=== PATIENT | female | born 1960 | race Caucasian/White ===

== ENCOUNTER 2024-04-19 20:07 | Emergency (ER) | payer OTHER, SELFPAY ==
[2024-04-19 20:16] VITALS: BP 124/68
[2024-04-19 20:47] LABS: % Basophils 0.5 % (0-2); % Eosinophils 0.1 % (0-6); % Immature Granulocytes 0.4 % (0-0.5); % Lymphocytes 4.1 % (20.5-51.1); % Monocytes 12.2 % (1.7-9.3); % Neutrophils 82.7 % (42.2-75.2); Absolute Lymphocytes 0.3 10^3/uL (1.2-3.4); Absolute Neutrophils 6.9 10^3/uL (1.4-6.5); Hematocrit 37.8 % (37.0-47.0); Hemoglobin 12.4 g/dL (12.0-16.0); Mean Corp Hgb Conc. 32.8 g/dL (33.0-37.0); Mean Corpuscular Hgb 27.3 pg (27.0-31.0); Mean Corpuscular Volume 83.3 fL (81.0-99.0); Mean Platelet Volume 9.4 fL (7.4-10.4); Nucleated Red Blood Cells % 0 %; Platelet Count 248 10^3/uL (130-400); Red Blood Cell Count 4.54 10^6/uL (4.20-5.40); Red Cell Dist. Width 14.7 % (11.5-14.5); White Blood Cell Count 8.4 10^3/uL (4.8-10.8)
[2024-04-19 20:55] LABS: COVID-19 Antigen Negative (Negative)
[2024-04-19 21:04] LABS: ALT (SGPT) 111 U/L (0-35); AST (SGOT) 142 U/L (14-36); Albumin 4.2 g/dl (3.5-5.0); Alkaline Phosphatase 124 U/L (38-126); Blood Urea Nitrogen 16 mg/dl (7-17); Calcium 9.1 mg/dl (8.4-10.2); Carbon Dioxide 22 mmol/L (22-30); Chloride 99 mmol/L (98-107); Glucose 122 mg/dl (70-99); Potassium 3.8 mmol/L (3.5-5.1); Sodium 133 mmol/L (135-145); Total Bilirubin 0.9 mg/dl (0.2-1.3); Total Protein 6.8 g/dl (6.3-8.2); eGFR > 60.00
[2024-04-19 21:05] LABS: Lipase 62 U/L (23-300)
--- NOTE | 2024-04-19 21:39 | EDRN ---
Patient came out of the room to state that the patient is in a lot of pain. Upon assessment patient states it's her lower back. Also states she is vomiting bile and has been vomiting for a month since starting wegovy. Ivy LINARES made aware.
[2024-04-19] MEDS: ZOFRAN 4 MG IV (22:20)
[2024-04-19] MEDS: NSS 1000 IV (22:20)
[2024-04-19] MEDS: DILAUDID 0.5 MG IV (22:20)
--- NOTE | 2024-04-19 22:50 | ED.GENMED ---
History of Present Illness
General
Chief Complaint: Cold/Flu/URI Symptoms
Source: patient
Time Seen by Provider: 04/19/24 21:27
History of Present Illness
History of Present Illness:
63-year-old female with no significant past medical history presenting to the emergency department for evaluation of generalized fatigue, malaise, nausea and vomiting, cough, sore throat and back pain starting over the last 24 hours although patient
does note that since starting Wegovy in December she has been having GI symptoms, increased the dose yesterday which led to further vomiting overnight. No known sick contacts, recent travel or recent antibiotics. Patient states that anytime she
attempted to tolerate p.o. today she would vomit. Notes that she feels dehydrated. Has not notified her primary care provider that she has been having these GI symptoms since starting the Wegovy.
Past History
Past History
ED Past Medical History: None
ED Past Surgical History: Cholecystectomy and Gynecological (Hysterectomy)
Social History
Tobacco: Non-smoker
Alcohol: Occasional
Drug: None
Personal:
Living: with family
Employment: Employed
Family History
Family History: Early CAD (Mother)
Review of Systems
Review of Systems
All Other Systems: ROS reviewed and negative except as documented in HPI and ROS
Phy Exam
Physical Exam
Physical Exam:
GENERAL: Alert , appears uncomfortable
EYE: clear conjunctiva b/l
HEAD: NCAT
ENT: o/p clr, mmm.
CARDIAC: Regular rate and rhythm .
LUNGS: Clear breath sounds bilaterally, no acute respiratory distress, no wheezes/rales/rhonchi
ABDOMEN: Soft, without focal tenderness, no r/g, no cvat
BACK: No focal tenderness, no rashes
NEUROLOGICAL: Alert and oriented
SKIN: Warm and dry, skin intact.
MUSCULOSKELETAL: No edema, well perfused.
PSYCH: Normal and appropriate interaction.
Scores
Heart Failure Risk
Heart Failure Risk Score: Not Applicable
Heart Score for Chest Pain Patients
STEMI patient?: Not applicable
Withdrawal Assessment of Alcohol
Withdrawal Assessment Completed?: Not applicable
Course
Orders/Labs/Results
Orders:
Orders
04/19/24 20:19
Electrocardiogram (*1) Urgent
Reason for Study: Chest Pain
EKG- Treatment ONCE
Chest [CR Chest - 2 Views ] Urgent
Comment:
Reason For Exam: cough
04/19/24 20:29
Complete Blood Count/With Diff Urgent
Comprehensive Metabolic Panel Urgent
Lipase Urgent
Influenza A+B Rapid Molecular Urgent
[place] Source: Nasal Swab
Specimen Description:
04/19/24 20:30
COVID-19 Antigen Urgent
Source: Nasal Swab
04/19/24 21:28
0.9% Sodium Chloride 1000 ml [Nss] 1,000 ml IV BOLUS
Ondansetron Injectable [Zofran] 4 mg IV NOW STA
04/19/24 22:08
HYDROmorphone [Dilaudid] 0.5 mg IV NOW STA
04/19/24 22:57
Ketorolac [Toradol] 30 mg IV NOW STA
Abnormal Lab Results
04/19/24
20:29
MCHC 32.8 L g/dL
(33.0-37.0)
RDW 14.7 H %
(11.5-14.5)
Absolute Neuts (auto) 6.9 H 10^3/uL
(1.4-6.5)
Absolute Lymphs (auto) 0.3 L 10^3/uL
(1.2-3.4)
Absolute Monos (auto) 1.0 H 10^3/uL
(0.1-0.6)
Neutrophils % 82.7 H %
(42.2-75.2)
Lymphocytes % 4.1 L %
(20.5-51.1)
Monocytes % 12.2 H %
(1.7-9.3)
Sodium 133 L mmol/L
(135-145)
Glucose 122 H mg/dl
(70-99)
AST 142 H U/L
(14-36)
ALT 111 H U/L
(0-35)
04/19/24 20:29
04/19/24 20:29
Vital Signs
Initial and Last Documented VS:
Initial Vital Signs
Temp Pulse Resp BP Pulse Ox
98.9 F 108 18 124/68 95
04/19/24 20:16 04/19/24 20:16 04/19/24 20:16 04/19/24 20:16 04/19/24 20:16
Last Documented Vital Signs
Temp Pulse Resp BP Pulse Ox
100.8 F H 88 18 124/68 96
04/19/24 22:26 04/19/24 22:26 04/19/24 22:26 04/19/24 20:16 04/19/24 22:26
MDM/Problems Addressed
Differential Diagnosis Includes:
COVID, flu, medication side effect, medication induced pancreatitis, I do not have concern for gallstone/cholecystitis given patient is status postcholecystectomy, dehydration
MDM/Problems Addressed:
63-year-old female presenting the ER for evaluation of nausea and vomiting, back pain and flulike symptoms. Nausea and vomiting has been ongoing since starting on Wegovy for weight loss. Increased dose yesterday which patient believes may have
caused further vomiting. Labs have been initiated on arrival with patient testing positive for the flu. She also has mildly elevated liver function test which I suspect is likely reactive from vomiting versus potential side effect from Wegovy.
Will treat with fluids, Zofran and half milligram of Dilaudid. Reassessment following.
*Pulse Oximetry
Patient hypoxic: no
*Critical Care Note
Total Time (30-74mins, 75-104mins- exclusive of procedures): Not Applicable
Data Reviewed
Review of Other/Old Records Reveals: Labs
Patient Management
Escalation/DeEscalation of care consider admission/obs:
Patient noting improved pain following initial round of medications but still with comfort. Additional Toradol ordered. I suspect the flu was the most likely cause of patient's fevers and other symptoms however difficult to ascertain whether
nausea and vomiting is from the flu or from medication side effects. Will prescribe Tamiflu and Zofran. Patient advised on continued supportive care at home. Otherwise stable for discharge home
ED Attending Note
-
Portions of this chart may have been created with voice recognition software.� Occasional wrong word or��sound alike� substitutions may have occurred due to the inherent limitations of voice recognition software.
Discharge Plan
Departure
Patient Disposition: Home (Routine Discharge)
Date of Disposition: 04/19/24
Time of Disposition: 22:50
Patient with high blood pressure during this ER visit?: No
Discharge Problem:
Influenza A, Vomiting
Instructions: Flu in adults - Discharge instructions
Prescriptions:
New
oseltamivir [Tamiflu] 75 mg capsule
75 mg PO BID 5 Days Qty: 10 0RF
ondansetron 4 mg tablet,disintegrating
4 mg PO Q8H PRN (Reason: nausea and vomiting) Qty: 10 0RF
No Action
chromium picolinate 200 MCG tablet
200 mcg PO DAILY
aspirin 81 MG tablet,chewable
81 mg PO DAILY
celecoxib 200 MG capsule
200 mg PO BID Qty: 30 1RF
Rx Instructions:
use around the clock first 3-4d after surgery, then switch to as needed as pain subsides. If not covered by your drug plan, can use either Advil or Aleve instead-- see postop instructions for dose
hydrocodone-acetaminophen 1 TABLET tablet
1 tab PO Q4HPRN PRN (Reason: moderate pain) Qty: 20 0RF
Rx Instructions:
can use 2 tablets every 4h for severe pain
Use for pain if Celebrex not enough
metronidazole 500 MG tablet
500 mg PO TID Qty: 30 0RF
cephalexin 500 MG capsule
500 mg PO TID Qty: 30 0RF
Referrals:
[facility], [Other]
Mynor Ruby CRNP [Family Provider] -
Interventions
Interventions:
*Risk Screen - Suicide Last Done: 04/19/24 20:16
*General Assessment Last Done: 04/19/24 20:16
*ED COVID-19 Vaccine History Last Done: 04/19/24 20:16
Discharge Date and Time
Discharge Date/Time: 04/19/24 23:54
Print Language: ANGUILLAN
[2024-04-19] MEDS: TORADOL 30 MG IV (23:04)
== END 2024-04-19 23:54 | disposition home or self-care (01) ==
LOC: EMR 20:07
PROVIDERS: Emergency Medicine; EMERGENCY PHYSICIAN Student in an Organized Health Care Education/Training Program; FAMILY PHYSICIAN Nurse Practitioner Adult Health
DX: J10.1 Influenza due to other identified influenza virus with other respiratory manifestations (principal); R11.2 Nausea with vomiting, unspecified; Z90.49 Acquired absence of other specified parts of digestive tract; Z90.710 Acquired absence of both cervix and uterus
CPT/HCPCS: 99285; 96374; 96375; 96361; 71046; 80053; 83690; 85025; 87502; 87811; 93005